=== PATIENT | male | born 1940 | race Caucasian/White ===

== ENCOUNTER 2016-07-10 07:41 | Day surgery (SDC) | payer BC ==
[2016-07-03 16:31] LABS: BASOPHILS 0.4 %; BASOPHILS ABSOLUTE 0.04 10/3/uL (0.0-0.16); EOSINOPHILS 3.3 %; EOSINOPHILS ABSOLUTE 0.32 10/3/uL (0.0-0.53); HEMOGLOBIN 11.3 g/dL (13.6-17.8); IMMATURE GRANULOCYTES 0.1 %; IMMATURE GRANULOCYTES ABSOLUTE 0.01 10/3/uL (0.0-0.11); LYMPHOCYTES 26.4 %; LYMPHOCYTES ABSOLUTE 2.59 10/3/uL (0.67-4.30); MEAN PLATELET VOLUME 10.2 fL (9.2-13.0); MONOCYTES 8.6 %; MONOCYTES ABSOLUTE 0.84 10/3/uL (0.21-1.20); NEUTROPHILS 61.2 %; NEUTROPHILS ABSOLUTE 6.01 10/3/uL (2.02-8.40); RED CELL COUNT 4.23 10/6/uL (4.7-6.1); WHITE BLOOD CELLS 9.8 10/3/uL (4.5-10.5)
[2016-07-03 16:36] LABS: HEMATOCRIT 35.3 % (40.0-51.0); MANUAL DIFF NO %; MEAN CORPUSCULAR HEMOGLOB 26.7 pg (26.0-34.0); MEAN CORPUSCULAR VOLUME 83.5 fL (80-100); PLATELET COUNT 282 10/3/uL (150-400); RBC DISTRIBUTION WIDTH 17.8 % (12.0-16.0)
[2016-07-03 16:45] LABS: A/G RATIO 1.1 (0.7-1.9); ALBUMIN 3.9 G/DL (3.5-5.0); CALCIUM, SERUM 9.7 MG/DL (8.5-10.4); CHLORIDE, SERUM 104 MMOL/L (96-112); CO2 (CARBON DIOXIDE) 32 MMOL/L (24-34); GLOBULIN 3.5 G/DL (2.5-4.1); GLUCOSE, SERUM 72 MG/DL (60-99); POTASSIUM, SERUM 5.1 MMOL/L (3.5-5.3); SGOT(AST) 21 U/L (5-40); SGPT(ALT) 22 U/L (5-65); SODIUM, SERUM 142 MMOL/L (135-148); TOTAL BILIRUBIN 0.4 MG/DL (0-1.2); TOTAL PROTEIN 7.4 G/DL (6.0-8.5)
[2016-07-03 16:47] LABS: ALKALINE PHOSPHATASE 121 U/L (45-117); BUN (BLOOD UREA NITROGEN) 36 MG/DL (6-23); CREATININE 1.88 MG/DL (0.70-1.30); GFR AFRICAN AMERICAN 40 ML/MIN (>=60); GFR NON AFRICAN AMERICAN 35 ML/MIN (>=60)
--- NOTE | ~2016-07-10 | PREOPHP ---
PreOp History and Physical [address] [place]. [address] NAME: STEPHANIE RAMIREZ : 44 STATUS : PRE [facility] PAT#: [id number] AGE: 75 ADM/REG DATE : MR#: [id number] REPORT SERV DATE: 07/09/16 DICTATED BY: MELVINA REDDY III DATE: 06/26/16 REPORT STATUS : Draft TRANSCRIBED BY: MODL DATE: 06/26/16 HISTORY OF PRESENT ILLNESS: This 75-year-old male comes to the operating room for resection of an enlarging symptomatic soft tissue neoplasm over his right scapula. The patient has a mass over his right scapula. This has been present for many years. Recently, this has been increasing in size and symptomatic in terms of local pain and discomfort. The patient comes to the operating room now for resection of this mass. PAST MEDICAL HISTORY: 1. Hypertension. 2. Hyperlipidemia. 3. Mild dementia. 4. Coronary artery disease. 5. Gastroesophageal reflux disease. MEDICATIONS: Allopurinol, aspirin, atenolol, donepezil, iron, folic acid, loratadine, losartan, meloxicam, oxycodone, and simvastatin. ALLERGIES: HYDROCODONE. PAST SURGICAL HISTORY: Includes right hip replacement, coronary artery bypass graft, and left hip replacement. FAMILY HISTORY: Positive for dementia and heart disease. SOCIAL HISTORY: No history of tobacco or alcohol use. REVIEW OF SYSTEMS: The patient complains of easy bruising. His 14-point review of systems otherwise unremarkable. OBJECTIVE PHYSICAL EXAM: GENERAL: This is a male, who is alert and appropriate. He is somewhat disheveled. VITAL SIGNS: Blood pressure 127/65, temperature 98.6, pulse 80. HEENT: Unremarkable. NECK: Unremarkable. No adenopathy. NEUROLOGIC: Cranial nerves 2 through 12 are normal. LUNGS: Clear. CARDIAC EXAM: Normal. ABDOMEN: Soft, nontender. SKIN: Over the right scapula is a large soft tissue mass. This mass is soft, mobile, discrete some 6 to 8 cm in size. Both axilla normal with no adenopathy. EXTREMITIES: Normal. ASSESSMENT: 1. 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 2. Hypertension. PreOp History and Physical [address] [address] NAME: STEPHANIE RAMIREZ : 44 STATUS : PRE [place] PAT#: [id number] AGE: 75 ADM/REG DATE : MR#: [id number] REPORT SERV DATE: 07/09/16 DICTATED BY: MELVINA REDDY III DATE: 06/26/16 REPORT STATUS : Draft TRANSCRIBED BY: CLYDE DATE: 06/26/16 3. Hyperlipidemia. 4. Mild dementia in the past. 5. Coronary artery disease. 6. History of coronary artery bypass graft. 7. Degenerative joint disease. PLAN: The patient comes to the operating room now for resection of this right scapular mass. This procedure, the risks, benefits, and alternatives, including not limited to the risk for bleeding, infection, pain, swelling, scarring, deformity to the area, seroma formation, hematoma formation, nerve injury with chronic paresthesia or pain in the involved area, spinal accessory nerve injuries, muscle weakness or paralysis in muscles of upper, back, or shoulder, and unforeseen complications including deep venous thrombosis, pulmonary embolus, myocardial infarction, stroke, pneumonia, and , have been explained to the patient prior to surgery. The option of nonoperative management has been offered to the patient but declined. His questions have been answered. He understands the risks and agrees to surgery as planned. MARTIN/CLYDE Melvina Reddy III, M.D. / [id number]
--- NOTE | ~2016-07-10 | OP ---
Record Of Operation [facility] [address] [place]. [address] NAME: STEPHANIE RAMIREZ : 44 STATUS : REG [facility] [place] PAT#: [id number] AGE: 75 ADM/REG DATE : 07/10/16 MR#: [id number] REPORT SERV DATE: 07/10/16 DICTATED BY: MELVINA REDDY III DATE: 07/10/16 REPORT STATUS : Draft TRANSCRIBED BY: MODL DATE: 07/10/16 DATE OF PROCEDURE: 07/10/2016 PREOPERATIVE DIAGNOSIS: Enlarging symptomatic soft tissue neoplasm of the right back or right scapula. POSTOPERATIVE DIAGNOSIS: Enlarging symptomatic soft tissue neoplasm of the right back or right scapula. PROCEDURE: Resection of large right back mass. SURGEON: Melvina Reddy M.D. ANESTHESIA: Local with sedation. COMPLICATIONS: None. ESTIMATED BLOOD LOSS: Less than 5 mL. SPECIMENS: Mass from back. DRAINS: None. LAP AND SPONGE COUNT: Correct x3. BRIEF HISTORY: This 75-year-old male, who presented with a very large symptomatic soft tissue mass over the right scapula. This was symptomatic, it was felt that resection was indicated. The patient has history of severe cardiac disease. It was felt that this would need to be done under local anesthesia with sedation. Regarding the procedure, the risks, benefits, and alternatives, including, but not limited to the risk for bleeding, infection, pain, swelling, scarring, deformity to the area, seroma formation, hematoma formation, nerve injury, chronic paresthesia, pain, numbness, neuralgia or neuroma of the involved area, spinal accessory nerve injury with muscle weakness or paralysis to muscles of upper back or shoulder, and unforeseen complications including deep venous thrombosis, pulmonary embolus, myocardial infarction, stroke, pneumonia, and , were fully explained to the patient and family prior to surgery. Their questions were answered. They understood the risks and agreed to the surgery as planned. DESCRIPTION OF PROCEDURE: After being properly identified and after discussing the risks of surgery with the patient's family again in the preoperative area, and after marking and identifying the tumor with him in the preoperative area, the patient was taken to the operating room and placed in the supine position on the operating room table. He was lightly sedated per Anesthesia. He was then placed in the left lateral position. The back was prepped and draped sterilely in usual fashion. After an appropriate "time-out" per [employer] standards, the skin and subcutaneous tissue over the mass was injected with 0.5% Marcaine. After assuring adequate anesthesia, a vertical incision was made directly over Record Of Operation [address] [address] NAME: STEPHANIE RAMIREZ : 44 STATUS : REG [facility] [place] PAT#: [id number] AGE: 75 ADM/REG DATE : 07/10/16 MR#: [id number] REPORT SERV DATE: 07/10/16 DICTATED BY: MELVINA REDDY III DATE: 07/10/16 REPORT STATUS : Draft TRANSCRIBED BY: MODL DATE: 07/10/16 the mass. The incision was continued through subcutaneous tissue. A well-defined and well- encapsulated mass was identified which was about 6 cm in size. This was completely resected from the subcutaneous tissue and of the deep fascia level. The entire mass was resected. At no point any neurovascular structures were encountered or injured. Hemostasis was assured. The subcutaneous tissue was closed with running 3-0 Vicryl suture. The skin was closed with running subcuticular 4-0 Monocryl stitch. Dressings were applied. The patient tolerated the procedure well. He was taken to phase-2 recovery in stable condition. His family was informed results of surgery. The patient will be discharged when stable and comfortable. His family was advised that he should not drive for two to three days after surgery or while using narcotics that he should resume his usual medications, and that he should keep his wound clean and dry for 48 hours. He was asked to return in two weeks for followup or sooner if any fever, chills, wound drainage, or other problems prior to that time. He was given a prescription for Percocet 7.5 one t.i.d., #12, as needed for pain, which he was advised not to use while driving. MARTIN/CLYDE Melvina Reddy III, M.D. / [id number] CC: Kate Olivas III, McKenzie, M.D.
[~2016-07-10 07:41] MED LIST: ASAB PO; ATEN50 PO; HYZAAR 100/25 T1 TAB PO; LEXAPRO10 PO; LIPOTRIAD1 CAP PO; Z100 PO; ZOCOR40 PO; ZYRTEC ALLGY10 MG PO
== END 2016-07-10 23:59 | disposition home or self-care (01) ==
LOC: SDC 07:41
PROVIDERS: Surgery
PROC: 0WBK0ZZ Excision of Upper Back, Open Approach (ICD-10-PCS; principal; 2016-07-10 09:00)
DX: D17.1 Benign lipomatous neoplasm of skin and subcutaneous tissue of trunk (principal); E78.5 Hyperlipidemia, unspecified; K21.9 Gastro-esophageal reflux disease without esophagitis; G89.29 Other chronic pain; H91.90 Unspecified hearing loss, unspecified ear; M54.5 Low back pain; G30.0 Alzheimer's disease with early onset; F02.80 Dementia in other diseases classified elsewhere, unspecified severity, without behavioral disturbance, psychotic disturbance, mood disturbance, and anxiety; Z95.1 Presence of aortocoronary bypass graft; Z90.89 Acquired absence of other organs; Z79.899 Other long term (current) drug therapy; Z79.82 Long term (current) use of aspirin; Z96.1 Presence of intraocular lens; Z97.4 Presence of external hearing-aid; Z98.890 Other specified postprocedural states; I10 Essential (primary) hypertension
CPT/HCPCS: 36415; 71020; 80053; 85025; 88304; 93005; J0690; J2370; J3010